=== PATIENT | female | born 1995 | race Caucasian/White ===

== ENCOUNTER 2024-02-13 16:11 | Emergency (ER) | payer BC, SELFPAY ==
--- NOTE | ~2024-02-13 | US_ITS ---
EXAMINATION: US pelvic complete w TV DATE: 02/13/2024 20:07 INDICATION: Right lower quadrant pain, nausea and vomiting TECHNIQUE: Multiple transabdominal and endovaginal sonographic images of the pelvis were obtained. COMPARISON: CT from today FINDINGS: The uterus measures 7.6 x 4 x 5.5 cm. The endometrial complex measures 9 mm. The left ovary is not visualized however no left adnexal abnormality is seen. The right ovary measures 2.7 x 1.8 x 2.6 cm. There is a 1.7 cm cystic lesion with thin internal septation in the right adnexa. There is no rmal vascular flow in the right ovary. There is complex fluid in the cul-de-sac. IMPRESSION: 1. Complex free fluid in the cul-de-sac which could reflect inflammation or possibly ruptured hemorrh agic cyst. Reviewed, dictated and finalized at location F. IMPRESSION: 1. Complex free fluid in the cul-de-sac which could reflect inflammation or pos sibly ruptured hemorrhagic cyst.
--- NOTE | ~2024-02-13 | CT_ITS ---
EXAMINATION: CT abdomen pelvis w con INDICATION: Right lower quadrant pain TECHNIQUE: Computed tomographic images of the abdomen and pelvis were obtained after the administrati on of 100 cc of Omnipaque 350 intravenous contrast. The dose-length product (DLP) was 870.14 mGy-cm. Automated exposure control and iterative reconstruction technique were employed. COMPARISON: None available FINDINGS: Minimal dependent atelectasis is present in the lung bases. The heart size is normal. The l iver, spleen, pancreas, gallbladder, and adrenal glands are normal. The kidneys are unremarkable. The re is enhancement in the right adnexa. There is fluid in the cul-de-sac which measures greater than s imple fluid attenuation. No pathologically enlarged abdominal or pelvic lymph nodes are identified. N o free intraperitoneal gas or evidence of bowel obstruction. The appendix is normal. There is an umbi lical hernia containing fat. IMPRESSION: 1. Enhancement in the right adnexa with complex fluid in the pelvis. Finding could reflect pelvic inf lammatory disease of the right adnexa with possible hydrosalpinx or possibly a ruptured hemorrhagic c yst. Consider short-term ultrasound follow-up if the patient remains clinically stable. Reviewed, dictated and finalized at location F. IMPRESSION: 1. Enhancement in the right adnexa with complex fluid in the pelvis. Finding co uld reflect pelvic inflammatory disease of the right adnexa with possible hydro salpinx or possibly a ruptured hemorrhagic cyst. Consider short-term ultrasound follow-up if the patient remains clinically stable.
[2024-02-13 16:12] VITALS: BP 129/80; PULSE 82; RESP 18; TEMP 36.4; O2SAT 100
[2024-02-13 18:45] LABS: Basophils Percent Auto 0.3 % (0.2-1.2); Eosinophils Absolute Auto 0.1 K/mm3 (0-0.3); Eosinophils Percent Auto 1.4 % (0-4.4); Hematocrit 42.5 % (37.0-47.0); Hemoglobin 13.9 g/dL (12.0-15.0); Immature Granulocyte Absolute 0.05 K/mm3 (0.00-0.031); Immature Granulocyte Percent A 0.7 % (0-0.5); Lymphocytes Absolute Auto 2.55 K/mm3 (0.9-3.2); Lymphocytes Percent Auto 35.3 % (18.3-44.2); Mean Corpuscular HGB Conc 32.7 g/dl (32-36); Mean Corpuscular Hemoglobin 31.3 pg (26-34); Mean Corpuscular Volume 95.7 fl (80-100); Mean Platelet Volume 10.1 fl (7.4-10.4); Monocytes Absolute Auto 0.6 K/mm3 (0.1-0.6); Monocytes Percent Auto 7.6 % (2.6-8.5); Neutrophils Percent Auto 54.7 % (45.5-73.1); Platelet Count Result 274 k/mm3 (150-375); Red Blood Count 4.44 M/mm3 (4.2-5.4); Red Cell Distribution Width 12.2 % (11.5-14.5); White Blood Count 7.2 K/mm3 (4.5-10.0)
[2024-02-13 18:47] VITALS: BP 109/67; PULSE 65; RESP 18; O2SAT 100
[2024-02-13 18:49] LABS: Bacteria Urine Rare /hpf; Non Pathogenic Casts 0-2; RBC Urine 0-2 /hpf (0-2); Squamous Epithelial Cell Urine None Seen /hpf (Few); WBC Urine 0-5 /hpf (0-3)
[2024-02-13 18:57] LABS: Alanine Aminotransferase 16 U/L (6-35); Albumin Level 4.2 g/dL (3.5-5.1); Alkaline Phosphatase 46 U/L (38-126); Anion Gap 3 mmol/L (8-16); Aspartate Amino Transferase 27 U/L (14-36); Bilirubin,Total 0.4 mg/dL (0.2-1.3); Blood Urea Nitrogen 21 mg/dL (7-17); Calcium 9.4 mg/dL (8.4-10.2); Carbon Dioxide 28 mmol/L (22-30); Chloride 108 mmol/L (98-107); Estimated CRCL calculation 110 ml/min; Estimated Glomerular Filt Rate > 60; Glucose 77 mg/dL (65-110); Lipase 67 U/L (23-300); Potassium 3.9 mmol/L (3.4-5.0); Sodium 139 mmol/L (137-145)
[2024-02-13 19:12] LABS: Appearance Urine Clear (Clear); Color Urine Yellow (Yellow); Specific Grav Ur 1.025 (1.001-1.035)
[2024-02-13 19:13] LABS: Glucose Urine UA Negative (Negative); Ketones Urine Trace mg/dL (Negative); Protein Urine Negative (Negative)
[2024-02-13 19:14] LABS: Bilirubin Urine Negative (Negative); Blood Urine Negative (Negative); Nitrate Urine Negative (Negative)
[2024-02-13 19:15] LABS: Add Urine Microscopic? YES; Leukocyte Esterase Ur Negative LEU/UL (Negative)
[2024-02-13] MEDS: SODIUM CHLORIDE 0.9% IV 1,000 ML 999 ML IV CONT (19:24)
[2024-02-13] MEDS: ONDANSETRON INJ 4 MG/2 ML VIAL IV PUSH (19:24)
[2024-02-13] MEDS: MORPHINE SULFATE (*CRX) 4 MG/ML INJ IV PUSH (19:31)
[2024-02-13 19:32] VITALS: BP 114/75; PULSE 60; RESP 16; O2SAT 100
--- NOTE | 2024-02-13 19:33 | ED.ABDPAIN ---
HPI - Abdominal Pain General Chief Complaint: Abdominal Pain Stated Complaint: RLQ abd pain Time Seen by Provider: 02/13/24 18:45 Source: patient Mode of arrival: ambulatory Limitations: no limitations History of Present Illness HPI narrative: Patient is a 28-year-old female, with pmh of crohn's disease, who presents the ED with report of right lower quadrant abdominal pain. Patient reports pain has been ongoing and worsening over the last 3 days. Began initially after having intercourse. Pain became significantly worse today which prompted her presentation. Pain worse with any type of movement. She has tried taking Advil without improvement. Reports nausea and 1 episode of vomiting, denies fevers, diarrhea, constipation, dysuria, hematuria, vaginal bleeding, vaginal discharge. Patient has never had pain like this before. Denies previous history of ovarian cyst. Related Data Allergies Allergy/AdvReac Type Severity Reaction Status Date / Time No Known Allergies Allergy Verified 02/13/24 16:12 Review of Systems Review of Systems: CONSTITUTIONAL: Denies fever, chills, or sweats. CARDIOVASCULAR: Denies chest pain. RESPIRATORY: Denies dyspnea. GASTROINTESTINAL: See HPI GENITOURINARY: See HPI MUSCULOSKELETAL: Denies back pain, extremity pain, myalgia. All systems reviewed & are unremarkable except as noted in HPI and below Exam Narrative: GENERAL: Mildly uncomfortable appearing, obese with BMI of 34.5, non-toxic, in no acute distress. HEAD: Normocephalic, atraumatic. RESPIRATORY: Airway patent, respirations nonlabored. Clear to auscultation bilaterally, no rales, rhonchi, wheezing. CARDIOVASCULAR: Regular rate and rhythm without murmurs, rubs, or gallops. ABDOMINAL: Soft, mild tenderness in suprapubic region and right lower abdomen, nondistended. Normoactive BS. MUSCULOSKELETAL: Moves all extremities. No gross deformities. SKIN: Warm, dry, normal color. NEURO: A&O X3. Speech clear. Cranial nerves II-XII grossly intact. Steady gait. No ataxic movements. PSYCHIATRIC: Appropriate mood and affect. Normal interaction. Course Vital Signs Vital signs: Vital Signs Temperature 97.6 F 02/13/24 16:12 Pulse Rate 82 02/13/24 16:12 Respiratory Rate 18 02/13/24 16:12 Blood Pressure 129/80 02/13/24 16:12 Pulse Oximetry 100 02/13/24 16:12 Oxygen Delivery Room Air 02/13/24 16:12 Temperature 97.6 F 02/13/24 16:12 Pulse Rate 62 02/13/24 21:55 Respiratory Rate 15 02/13/24 21:55 Blood Pressure 109/68 02/13/24 21:55 Pulse Oximetry 100 02/13/24 21:55 Oxygen Delivery Room Air 02/13/24 16:12 MDM - Abdominal Pain MDM Narrative Medical decision making narrative: Patient presented to ED with several day history of right lower quadrant abdominal pain, began after intercourse, worsening today. Vitals are stable upon arrival. Patient in no acute distress. Afebrile. Cbc without leukocytosis or anemia. CMP unremarkable. Stable electrolytes and kidney function. Normal LFTs and lipase. Urine with trace ketones, no evidence of infection. Pelvic ultrasound obtained and showing complex free fluid in pelvis, consistent with ruptured hemorrhagic cyst. Good vascular blood flow noted to R ovary. CT abd/pelvis obtained and showing similar findings. Normal appendix. Low suspicion for PID at this time. Patient denies any concern for STDs. She is in a monogamous relationship. Denies vaginal bleeding, vaginal discharge, vaginal irritation. Again, no leukocytosis, no infection seen on urinalysis. Clinical symptoms and history are most consistent with ruptured hemorrhagic cyst. Advised patient have close follow-up with OBGYN for further evaluation. She has an appointment on 02/22 with her OBGYN. Will provide a few pain pills for home use. Advised to continue using tylenol/ibuprofen as needed. Discussed strict return precautions. Patient is in agreement with plan and feels comfortable with disch
--- NOTE | 2024-02-13 20:25 | PC.NURSE ---
Pt called out for nurse. This RN went into patient room to find her crying and asking for more pain medicine. PA made aware.
[2024-02-13 20:32] VITALS: BP 111/77; PULSE 60; RESP 16; O2SAT 100
[2024-02-13] MEDS: HYDROmorphone HCL INJ (*CRX) 1 MG/ML SYR 0.5 MG IV PUSH (20:32)
--- NOTE | 2024-02-13 21:54 | PC.NURSE ---
Pt reports having hx of anxiety and feeling anxious. PA made aware.
[2024-02-13 21:55] VITALS: BP 109/68; PULSE 62; RESP 15; O2SAT 100
[2024-02-13] MEDS: LORazepam INJ (*CRX) 2 MG/ML VIAL 0.5 MG IV PUSH (21:55)
[2024-02-13 23:11] VITALS: BP 107/68; PULSE 66; RESP 20; TEMP 36.4; O2SAT 99
== END 2024-02-13 23:12 | disposition home or self-care (01) ==
PROVIDERS: Emergency Medicine; Emergency Provider Physician Assistant; PCP Family Medicine
DX: N83.201 Unspecified ovarian cyst, right side (principal)
CPT/HCPCS: 36415; 74177; 76830; 76856; 80053; 81001; 81025; 83690; 85025; 96361; 96374; 96375; 99284; J1170; J2060; J2270; J2405; J7030; Q9967

== ENCOUNTER 2024-02-14 19:48 | Emergency (ER) | payer BC, SELFPAY ==
--- NOTE | ~2024-02-14 | US_ITS ---
EXAMINATION: US pelvic complete w TV DATE: 02/14/2024 21:25 INDICATION: Right lower quadrant pain TECHNIQUE: Multiple transabdominal and endovaginal sonographic images of the pelvis were obtained. COMPARISON: 02/13/2024 FINDINGS: The uterus measures 7.5 x 4.2 x 5.1 cm. The endometrial complex measures 9 mm. The left ova ry is not visualized however no left adnexal abnormality is seen. The right ovary measures 3.5 x 4.3 x 3.5 cm. Cysts of the right adnexa are again seen measuring up to 1.7 cm.. There is normal vascular flow in the right ovary. Mildly complex free fluid is again noted in the pelvis. IMPRESSION: 1. Persistent mildly complex free fluid in the cul-de-sac possibly representing inflammatory fluid or ruptured hemorrhagic cyst. Consider [employer] evaluation given persistence of symptoms. Reviewed, dictated and finalized at location F.
[2024-02-14 19:52] VITALS: BP 121/67; PULSE 81; RESP 18; TEMP 36.4; O2SAT 100
[2024-02-14] MEDS: SODIUM CHLORIDE 0.9% IV 1,000 ML 999 ML IV CONT (20:15)
[2024-02-14] MEDS: ONDANSETRON INJ 4 MG/2 ML VIAL IV PUSH (20:15)
--- NOTE | 2024-02-14 20:17 | ED.ABDPAIN ---
HPI - Abdominal Pain General Chief Complaint: Abdominal Pain Stated Complaint: lower R abd pain Time Seen by Provider: 02/14/24 19:58 Source: patient and old records reviewed Mode of arrival: ambulatory Limitations: no limitations History of Present Illness HPI narrative: Patient is a 28-year-old female who presents the ED with report of right lower abdominal pain. Patient was seen in the ED yesterday and diagnosed with a ruptured hemorrhagic ovarian cyst. She was discharged with pain medication and has been taking this as prescribed, but states pain has become severe today. She also reports nausea, dizziness, states she has been unable to eat anything today. Denies vomiting, fevers, vaginal bleeding, dysuria, hematuria, vaginal discharge. Called OBGYN this morning, but unable to make appointment until next week. Related Data Allergies Allergy/AdvReac Type Severity Reaction Status Date / Time No Known Allergies Allergy Verified 02/14/24 19:49 Review of Systems Review of Systems: CONSTITUTIONAL: Denies fever, chills, or sweats. GASTROINTESTINAL: see HPI. GENITOURINARY: Denies dysuria or hematuria. MUSCULOSKELETAL: Denies back pain, extremity pain, myalgia. NEUROLOGIC: See HPI. All systems reviewed & are unremarkable except as noted in HPI and below Exam Narrative: GENERAL: Mildly uncomfortable appearing, obese with BMI of 34.6, non-toxic, in no acute distress. HEAD: Normocephalic, atraumatic. RESPIRATORY: Airway patent, respirations nonlabored. Clear to auscultation bilaterally, no rales, rhonchi, wheezing. CARDIOVASCULAR: Regular rate and rhythm without murmurs, rubs, or gallops. ABDOMINAL: Soft, focal TTP in RLQ, no rebound, nondistended. Normoactive BS. MUSCULOSKELETAL: Moves all extremities. No gross deformities. SKIN: Warm, dry, normal color. NEURO: A&O X3. Speech clear. PSYCHIATRIC: Appropriate mood and affect. Normal interaction. Course Vital Signs Vital signs: Vital Signs Temperature 97.6 F 02/14/24 19:52 Pulse Rate 81 02/14/24 19:52 Respiratory Rate 18 02/14/24 19:52 Blood Pressure 121/67 02/14/24 19:52 Pulse Oximetry 100 02/14/24 19:52 Oxygen Delivery Room Air 02/14/24 19:52 Temperature 97.6 F 02/14/24 19:52 Pulse Rate 55 L 02/14/24 23:28 Respiratory Rate 15 02/14/24 23:28 Blood Pressure 108/88 02/14/24 23:28 Pulse Oximetry 98 02/14/24 23:28 Oxygen Delivery Room Air 02/14/24 19:52 MDM - Abdominal Pain MDM Narrative Medical decision making narrative: Patient presented to ED with worsening right lower quadrant abdominal pain, diagnosed with hemorrhagic ovarian cyst yesterday in the ED. no evidence of torsion was seen on ultrasound yesterday. Vitals are stable upon arrival. Patient mildly uncomfortable appearing, but in no acute distress. Will repeat ultrasound, obtain laboratory studies, attempt pain control. Laboratory studies w/o significant abnormalities, no change from yesterday. Stable H&H. No leukocytosis. UA clear. STD testing negative. US showing persistent complex free fluid consistent with ruptured hemorrhagic cyst. Normal flow seen in R ovary. Discussed case with Dr. Marroquin OBGYN on-call, advised scheduled Tylenol/ ibuprofen, oxycodone for breakthrough pain, pelvic rest, heating pad. On re-evaluation, patient is feeling better with supportive therapy. She feels comfortable with discharge home at this time. Will prescribe oxycodone for home use. Advised close follow-up with OBGYN for further evaluation, given strict return precautions. Discharged in stable condition. Medical Records Attestation: I reviewed the patient's medical records. Lab Data Attestation: I reviewed the patient's lab results. 02/14/24 20:25 02/14/24 20:25 Labs: Lab Results 02/14/24 02/14/24 Range/Units 20:21 20:25 WBC 7.7 (4.5-10.0) K/mm3 RBC 4.58 (4.2-5.4) M/mm3 Hgb 14.5 (12.0-15.0) g/dL Hct 43.
[2024-02-14] MEDS: HYDROmorphone HCL INJ (*CRX) 1 MG/ML SYR 0.5 MG IV PUSH (20:23)
[2024-02-14 20:34] LABS: Basophils Percent Auto 0.3 % (0.2-1.2); Eosinophils Absolute Auto 0.1 K/mm3 (0-0.3); Eosinophils Percent Auto 1.4 % (0-4.4); Hematocrit 43.6 % (37.0-47.0); Hemoglobin 14.5 g/dL (12.0-15.0); Immature Granulocyte Absolute 0.04 K/mm3 (0.00-0.031); Immature Granulocyte Percent A 0.5 % (0-0.5); Lymphocytes Percent Auto 24.8 % (18.3-44.2); Mean Corpuscular HGB Conc 33.3 g/dl (32-36); Mean Corpuscular Hemoglobin 31.7 pg (26-34); Mean Corpuscular Volume 95.2 fl (80-100); Mean Platelet Volume 10.2 fl (7.4-10.4); Monocytes Absolute Auto 0.4 K/mm3 (0.1-0.6); Neutrophils Absolute Auto 5.2 K/mm3 (1.3-6.7); Platelet Count Result 264 k/mm3 (150-375); Red Blood Count 4.58 M/mm3 (4.2-5.4); Red Cell Distribution Width 12.1 % (11.5-14.5); White Blood Count 7.7 K/mm3 (4.5-10.0)
[2024-02-14 20:37] LABS: Bacteria Urine Rare /hpf; Non Pathogenic Casts 0-2; RBC Urine 0-2 /hpf (0-2); Squamous Epithelial Cell Urine None Seen /hpf (Few); WBC Urine 0-5 /hpf (0-3)
[2024-02-14 20:40] LABS: Appearance Urine Clear (Clear); Color Urine Yellow (Yellow); Protein Urine Negative (Negative); Specific Grav Ur >= 1.030 (1.001-1.035); Urobilinogen Urine 0.2 mg/dL (<2.0); pH Urine 5.5 (5.0-9.0)
[2024-02-14 20:41] LABS: Add Urine Microscopic? YES; Bilirubin Urine Negative (Negative); Blood Urine Negative (Negative); Glucose Urine UA Negative (Negative); Ketones Urine Negative (Negative); Leukocyte Esterase Ur Negative LEU/UL (Negative); Nitrate Urine Negative (Negative)
[2024-02-14 20:45] VITALS: BP 111/66; PULSE 76; RESP 16; O2SAT 98
[2024-02-14 21:04] LABS: Alanine Aminotransferase 15 U/L (6-35); Albumin Level 4.1 g/dL (3.5-5.1); Alkaline Phosphatase 55 U/L (38-126); Anion Gap 5 mmol/L (4-12); Aspartate Amino Transferase 19 U/L (14-36); Bilirubin,Total 0.4 mg/dL (0.2-1.3); Blood Urea Nitrogen 17 mg/dL (7-17); Calcium 9.3 mg/dL (8.4-10.2); Carbon Dioxide 22 mmol/L (22-30); Chloride 108 mmol/L (98-107); Estimated CRCL calculation 126 ml/min; Estimated Glomerular Filt Rate > 60; Glucose 119 mg/dL (65-110); Potassium 4.2 mmol/L (3.4-5.0); Sodium 135 mmol/L (137-145)
[2024-02-14 21:58] VITALS: BP 107/62; PULSE 62; RESP 15; O2SAT 100
[2024-02-14 22:15] LABS: Trichomonas Vag PCR NOT DETECTED (NOT DETECTE)
[2024-02-14] MEDS: KETOROLAC 30 MG/ML VIAL (*BKC) IV PUSH (22:26)
[2024-02-14 22:38] LABS: Chlamydia trachomatis NOT DETECTED (NOT DETECTE); Neisseria gonorrhoeae PCR NOT DETECTED (NOT DETECTE)
[2024-02-14] MEDS: oxyCODONE HCL (*CRX) 5 MG TAB IR PO (23:23)
[2024-02-14] MEDS: ACETAMINOPHEN 500 MG TABLET 1000 MG PO (23:23)
[2024-02-14 23:25] VITALS: BP 91/50; PULSE 61; RESP 18; O2SAT 98
[2024-02-14 23:28] VITALS: BP 108/88; PULSE 55; RESP 15; O2SAT 98
== END 2024-02-15 00:20 | disposition home or self-care (01) ==
PROVIDERS: Emergency Provider Physician Assistant; PCP Family Medicine
DX: N83.201 Unspecified ovarian cyst, right side (principal)
CPT/HCPCS: 36415; 76830; 76856; 80053; 81001; 81025; 85025; 86850; 86900; 86901; 87491; 87591; 87661; 96361; 96374; 96375; 99284; A9270; J1170; J1885; J2405; J7030